=== PATIENT | female | born 1955 | race Caucasian/White ===

== ENCOUNTER 2021-12-08 08:47 | Day surgery (SDC) | payer MEDICARE, OTHER ==
[~2021-12-08] VITALS: Ht 154.9 cm; Wt 59.3 kg
[~2021-12-08 08:47] MED LIST: AMLO25TA PO; ATOR1TAB19 PO; MEGA X; VITA100093 PO; VITMTA PO; [UNRECOGNIZED DRUG - OTHER]; [UNRECOGNIZED DRUG - OTHER]; biocleanse; ceFAZolin SOD 2 GM in IV 1 EA IV ONE
[2021-12-08] MEDS ORDERED: LR 1,000 ML IV SCH ×2 (09:00→14:05)
[2021-12-08] MEDS ORDERED: fentaNYL 250 MCG/5 ML INJECTION As Ordered ONE (10:15)
[2021-12-08] MEDS ORDERED: ONDANSETRON 4MG 2ML VIAL As Ordered ONE (10:16)
[2021-12-08] MEDS ORDERED: LIDOCAINE 2% 100MG/5ML SDV (FOR ANES.) As Ordered ONE (10:16)
[2021-12-08] MEDS ORDERED: propofoL 200 MG/20 ML VIAL As Ordered ONE (10:16)
[2021-12-08] MEDS ORDERED: dexameTHASONE 4 MG/ML 1ML VIAL (J1100 PER 1MG) As Ordered ONE (10:16)
[2021-12-08] MEDS ORDERED: MIDAZOLAM INJ 2MG/2ML VIAL (J2250 PER 1MG) As Ordered ONE (10:16)
[2021-12-08] MEDS ORDERED: METOCLOPRAMIDE INJ 10MG/2ML VIAL (J2765 PER 1) As Ordered ONE (12:57)
[2021-12-08] MEDS ORDERED: ACETAMINOPHEN 1000MG 100ML IV BTL (OFIRMEV) (J0131 PER 10MG) As Ordered ONE (12:59)
[2021-12-08] MEDS ORDERED: ePHEDrine SULFATE 25 MG/5 ML(5MG/ML) SYRINGE As Ordered ONE (13:01)
[2021-12-08] MEDS ORDERED: KETOROLAC 60MG 2ML VIAL As Ordered ONE (13:07)
[2021-12-08] MEDS ORDERED: ONDANSETRON 4MG 2ML VIAL IV PRN (14:05)
[2021-12-08] MEDS ORDERED: LIDOCAINE 1% SDV 30ML VIAL As Ordered ONE (14:10)
[2021-12-08] MEDS ORDERED: BUPIVACAINE HCL 0.5% 30ML VIAL As Ordered ONE (14:10)
[2021-12-08] MEDS: oxyCODONE 5MG TAB PO PRN ×2 (14:19→14:50)
[2021-12-08 14:55] VITALS: BP 140/75
== END 2021-12-08 15:25 | disposition home or self-care (01) ==
LOC: M SDC 08:47
PROVIDERS: ATTEND Podiatrist Foot & Ankle Surgery
DX: M21.611 Bunion of right foot (principal); M20.11 Hallux valgus (acquired), right foot; E11.9 Type 2 diabetes mellitus without complications; I10 Essential (primary) hypertension; Z79.899 Other long term (current) drug therapy
CPT/HCPCS: 28297; 28298; 88300; 97116; 97530; C1713; J0131; J0690; J1100; J1885; J2250; J2405; J2765; J3010

== ENCOUNTER 2022-07-20 08:24 | Day surgery (SDC) | payer MEDICARE, OTHER ==
[~2022-07-20] VITALS: Ht 152.4 cm; Wt 61.1 kg
[~2022-07-20 08:24] MED LIST changes: +[UNRECOGNIZED DRUG - OTHER]
[2022-07-20] MEDS ORDERED: LIDOCAINE 2% 100MG/5ML SDV (FOR ANES.) As Ordered ONE (09:16)
[2022-07-20] MEDS ORDERED: propofoL 200 MG/20 ML VIAL As Ordered ONE (09:16)
[2022-07-20] MEDS ORDERED: ONDANSETRON 4MG 2ML VIAL As Ordered ONE (09:16)
[2022-07-20] MEDS ORDERED: KETOROLAC 60MG 2ML VIAL As Ordered ONE (09:16)
[2022-07-20] MEDS ORDERED: fentaNYL 100 MCG/2 ML INJECTION As Ordered ONE (09:20)
[2022-07-20] MEDS ORDERED: MIDAZOLAM INJ 2MG/2ML VIAL As Ordered ONE (09:21)
[2022-07-20] MEDS ORDERED: LR 1,000 ML IV SCH ×2 (09:40→12:20)
[2022-07-20] MEDS ORDERED: SCOPOLAMINE 1MG TRANSDERMAL PATCH TOP SCH (09:40)
[2022-07-20] MEDS ORDERED: BUPIVACAINE/EPIN 0.5% 30ML VIAL As Ordered ONE (10:21)
[2022-07-20] MEDS ORDERED: LIDOCAINE 1% MDV 20ML VIAL As Ordered ONE (10:21)
[2022-07-20] MEDS ORDERED: BUPIVACAINE HCL 0.5% 30ML VIAL As Ordered ONE (10:22)
[2022-07-20] MEDS ORDERED: ACETAMINOPHEN 1000MG 100ML IV BAG As Ordered ONE (10:52)
[2022-07-20] MEDS ORDERED: ePHEDrine SULFATE 25 MG/5 ML(5MG/ML) SYRINGE As Ordered ONE (10:58)
[2022-07-20] MEDS ORDERED: PHENYLephrine 500MCG 5ML (100MCG/ML) SYRINGE As Ordered ONE (11:26)
[2022-07-20] MEDS ORDERED: oxyCODONE 5MG TAB PO PRN (12:20)
[2022-07-20] MEDS ORDERED: fentaNYL 100 MCG/2 ML INJECTION IV PRN (12:20)
[2022-07-20] MEDS ORDERED: ONDANSETRON 4MG 2ML VIAL IV PRN (12:20)
[2022-07-20] MEDS ORDERED: METOCLOPRAMIDE INJ 10MG/2ML VIAL IV PRN (13:10)
[2022-07-20 14:30] VITALS: BP 140/64
== END 2022-07-20 14:35 | disposition home or self-care (01) ==
LOC: M SDC 08:24
PROVIDERS: ATTEND Podiatrist Foot & Ankle Surgery
DX: M20.12 Hallux valgus (acquired), left foot (principal); M21.612 Bunion of left foot; I10 Essential (primary) hypertension; E78.00 Pure hypercholesterolemia, unspecified; E11.9 Type 2 diabetes mellitus without complications; K57.92 Diverticulitis of intestine, part unspecified, without perforation or abscess without bleeding; R06.83 Snoring; Z79.899 Other long term (current) drug therapy
CPT/HCPCS: 28299; 76000; 88300; C1713; J0131; J0690; J1100; J1885; J2250; J2370; J2405; J2765; J3010